=== PATIENT | female | born 2000 | race Caucasian/White ===

== ENCOUNTER 2023-05-21 09:09 | Emergency (ER) | payer OTHER ==
[~2023-05-21] VITALS: Ht 162.6 cm; Wt 80.4 kg
[2023-05-21] MEDS ORDERED: METF500T13 (09:35)
[2023-05-21] MEDS ORDERED: SPIR50TA4 (09:35)
[2023-05-21] MEDS ORDERED: TRET0.02 (09:35)
[2023-05-21] MEDS ORDERED: SOD175SO (09:35)
[2023-05-21] MEDS ORDERED: ADAP0.02 (09:35)
[2023-05-21] MEDS: ONDANSETRON 4MG ORAL DISINTEGRATING TAB PO ONE (10:23)
[2023-05-21] MEDS: ACETAMINOPHEN 325 MG TAB PO ONE (10:23)
[2023-05-21 10:33] LABS: BASO # 0.1 10^3/uL (0.0-0.2); BASO % 1.1 % (0.0-1.0); EOS # 0.1 10^3/uL (0.0-0.5); EOS % 1.8 % (0.0-3.0); HEMATOCRIT 43.7 % (36.0-47.0); HEMOGLOBIN 14.8 g/dl (12.0-15.5); LYMPH # 1.7 10^3/uL (1.5-5.0); LYMPH % 31.7 % (24.0-44.0); MEAN CORPUSCULAR HEMOGLOBIN 30.1 pg (27.0-33.0); MEAN CORPUSCULAR HGB CONC 33.9 g/dl (32.0-36.5); MONO # 0.5 10^3/uL (0.0-0.8); MONO % 9.6 % (2.0-8.0); NEUTROPHILS % 55.4 % (36.0-66.0); PLATELET COUNT, AUTOMATED 278 10^3/uL (150-450); RED BLOOD COUNT 4.91 10^6/uL (4.00-5.40); WHITE BLOOD COUNT 5.4 10^3/uL (4.0-10.0)
[2023-05-21 10:46] LABS: BLOOD UREA NITROGEN 9 MG/DL (9-23); CALCIUM LEVEL 8.5 MG/DL (8.5-10.1); CARBON DIOXIDE LEVEL 28 MMOL/L (20-31); CHLORIDE LEVEL 106 MMOL/L (98-107); CREATININE FOR GFR 0.72 MG/DL (0.55-1.30); GLOMERULAR FILTRATION RATE > 60.0 (>60); GLUCOSE, FASTING 94 MG/DL (60-100); SODIUM LEVEL 139 MMOL/L (136-145)
[2023-05-21 10:49] LABS: HCG, SERUM QUALITATIVE NEGATIVE (NEGATIVE)
[2023-05-21 11:42] VITALS: BP 123/72; TEMP 97.7; O2SAT 99
== END 2023-05-21 11:59 | disposition home or self-care (01) ==
LOC: M ED 09:09
DX: T58.11XA Toxic effect of carbon monoxide from utility gas, accidental (unintentional), initial encounter (principal); R94.31 Abnormal electrocardiogram [ECG] [EKG]; Y92.019 Unspecified place in single-family (private) house as the place of occurrence of the external cause; Y93.84 Activity, sleeping; Y99.9 Unspecified external cause status; Z79.899 Other long term (current) drug therapy; Z79.84 Long term (current) use of oral hypoglycemic drugs

== ENCOUNTER → 2023-05-29 | Outpatient (REF) | payer OTHER ==
[~2023-05-29] MED LIST: ADAP0.02; METF500T13; SOD175SO; SPIR50TA4; TRET0.02
[2023-05-29 15:01] LABS: CHLAMYDIA DNA AMPLIFICATION NEGATIVE (NEGATIVE); GC DNA AMPLIFICATION NEGATIVE (NEGATIVE)
== END ==
LOC: M LAB REF 12:14
PROVIDERS: ATTEND Nurse Practitioner Family
DX: R30.0 Dysuria (principal); Z11.3 Encounter for screening for infections with a predominantly sexual mode of transmission

== ENCOUNTER 2023-10-01 11:20 | Day surgery (SDC) | payer OTHER ==
[~2023-10-01] VITALS: Ht 162.6 cm; Wt 77.1 kg
[~2023-10-01 11:20] MED LIST changes: -METF500T13; +METF500T13 PO; +NS 1,000 ML IV ONE
[2023-10-01] MEDS ORDERED: DEPO150I12 IM (11:36)
[2023-10-01 12:24] VITALS: TEMP 98.1
[2023-10-01 12:40] VITALS: BP 120/74; O2SAT 98
== END 2023-10-01 12:57 | disposition home or self-care (01) ==
LOC: M OPP 11:20
PROVIDERS: ATTEND Internal Medicine Gastroenterology
DX: K64.8 Other hemorrhoids (principal); R10.2 Pelvic and perineal pain; R10.30 Lower abdominal pain, unspecified; K92.1 Melena; F17.200 Nicotine dependence, unspecified, uncomplicated

== ENCOUNTER → 2024-03-03 | Outpatient (CLI) | payer BC ==
[~2024-03-03] MED LIST changes: +DEPO150I12 IM; -NS 1,000 ML IV ONE
== END ==
LOC: M RAD 15:55
PROVIDERS: ATTEND Chiropractor
DX: M51.362 Other intervertebral disc degeneration, lumbar region with discogenic back pain and lower extremity pain (principal)